=== PATIENT | female | born 1995 | race Caucasian/White ===

== ENCOUNTER 2018-10-15 09:48 | Emergency (ER) | payer OTHER ==
[2018-10-15] MEDS ORDERED: Ibuprofen 200 MG TAB ONE (10:11)
== END 2018-10-15 11:25 | disposition home or self-care (01) ==
LOC: ERS 09:48
DX: J02.9 Acute pharyngitis, unspecified (principal); F32.9 Major depressive disorder, single episode, unspecified; F17.210 Nicotine dependence, cigarettes, uncomplicated; Z79.899 Other long term (current) drug therapy
CPT/HCPCS: 87081; 87430; 87804; 99283